=== PATIENT | female | born 1970 | race Caucasian/White ===

== ENCOUNTER 2016-10-26 22:13 | Emergency (ER) | payer OTHER ==
[2016-10-27] MEDS ORDERED: HYDROCOD/APAP 5/325 PREPACK#6 BTL TAKEHOME ONE (00:24)
--- NOTE | 2016-10-27 00:24 | EDPHY ---
H & P Stated Complaint: fell right wrist deformity HPI/ROS: Chief complaint: Right wrist injury History of present illness: 46-year-old female presents to the emergency department for a right wrist injury. Patient was walking her dog when she tripped and fell and essentially sustained a FOOSH injury. She has had severe pain. She has noted a deformity. She can not move the wrist. She denies open wounds. She denies abnormal coolness or paresthesias in the extremity. No other injuries reported. - Personal History LMP (Females 10-55): Post Menopausal Current Tetanus Diphtheria and Acellular Pertussis (TDAP): Unsure - Medical/Surgical History Hx Asthma: No Hx Chronic Respiratory Disease: No Hx Diabetes: No Hx Cardiac Disease: No Hx Renal Disease: No Hx Cirrhosis: No Hx Alcoholism: No Hx HIV/AIDS: No Hx Splenectomy or Spleen Trauma: No Other PMH: Lyme disease, hypothyroid, tonsilectomy, oral surgery, eye surgery - Social History Smoking Status: Former smoker - Physical Exam Exam: General: Alert, nontoxic Skin: No open wounds to the right upper extremity Musculoskeletal: Obvious deformity of the right wrist. She can move the wrist. She is moving the digits of the right hand although this causes pain in the wrist. The mid and proximal forearm, elbow and upper arm are nontender and she is moving the elbow and shoulder well. Vascular: Radial pulses 2+. Capillary refill brisk in the right hand. Neurologic: Sensation intact throughout the right upper extremity. Constitutional: Initial Vital Signs Temperature (C) 36.4 C 10/26/16 22:17 Heart Rate 68 10/26/16 22:17 Respiratory Rate 20 10/26/16 22:17 Blood Pressure 141/93 H 10/26/16 22:17 O2 Sat (%) 99 10/26/16 22:17 O2 Delivery Mode Room Air Allergies/Adverse Reactions: No Known Allergies Allergy (Unverified 10/26/16 22:16) Home Medications: Medication Instructions Recorded Estrogens, Conjugated 10/26/16 Naturethroid 10/26/16 Progesterone 10/26/16 Hydrocodone/APAP 5/325 [[place] 1 tab PO Q6H #10 tab 10/27/16 5/325 (*)] Medical Decision Making - Diagnostics Imaging Results: Imaging Impressions Wrist X-Ray 10/27/16 00:07 Impression: Closed reduction and casting of distal right radial and ulnar fractures. Imaging: I viewed and interpreted images myself Procedures: Procedure: Hematoma block Verbal consent was obtained after risks and benefits were discussed. The area was prepped with Hibiclens. 10 cc of 1% lidocaine without epinephrine were instilled. Patient obtained good anesthesia. No complications noted. Procedure: Fracture reduction. The distal radius and ulna was reduced in the usual fashion without complications. Post reduction the patient's neurovascular exam is normal. Post reduction x-ray demonstrates reduction of the joint to the anatomic position. The procedure was performed by myself. Procedure: Splint placement. A sugar-tong splint was applied. After application of the splint I returned and re-examined the patient. The splint was adequately immobilizing the joint and distal to the splint the patient's circulation and sensation was intact. Patient placed in a sling. ED Course/Re-evaluation: Patient seen under the supervision of my secondary supervising physician Dr. Frank Ross. Patient presents to the emergency department for right wrist injury. She is neurovascular intact. Obvious fracture that has been reduced and splinted with good positioning noted on post reduction films. She remains neurovascularly intact. Patient is discharged home. Home care including pain management is discussed. She is referred to Orthopedics for recheck. Return precautions are given. Differential Diagnosis: Included but not limited to contusion, sprain or strain, bony fracture, joint dislocation - Data Points Medications Given: Discontinued Medications Hydrocodone Bitart/Acetaminophen ([place] 5/325mg Prepack#6) [facility] Stop: 10/27/16 00:25 Last Admin: 10/27/16 00:44 Dose: 1 btl Departure - Departure Disposition: Home, Routine, Self-Care Clinical Impression: Wrist fracture Qualifiers: Encounter type: initial encounter Fracture type: closed Laterality: right Qualified Code(s): S62.101A - Fracture of unspecified carpal bone, right wrist, initial encounter for closed fracture Condition: Good Instructions: Hydrocodone/Acetaminophen (By mouth), Wrist Fracture in Adults ( ED) Additional Instructions: Follow-up with orthopedics for continued evaluation and care In regards to pain control see the following: Use ibuprofen [600] mg [3] times a day for the next 2-3 days for pain In addition You have been prescribed [[place]] for pain. [[place]] contains Tylenol, do not take extra Tylenol/acetaminophen/Apap with it. It is sedating. If symptoms worsen or new symptoms develop return to the emergency room for recheck Referrals: Carrol Lyle MD [Primary Care Provider] - As per Instructions Virgil Wan MD [Medical Doctor] - As per Instructions Prescriptions: Hydrocodone/APAP 5/325 [[place] 5/325 (*)] 1 tab PO Q6H #10 tab
[2016-10-27 00:52] VITALS: BP 112/75; PULSE 64; RESP 18; TEMP 97.9; O2SAT 95
== END 2016-10-27 00:52 | disposition home or self-care (01) ==
PROC: 0PSKXZZ Reposition Right Ulna, External Approach (ICD-10-PCS; principal; 2016-10-26)
PROC: 0PSHXZZ Reposition Right Radius, External Approach (ICD-10-PCS; principal; 2016-10-26)
DX: S52.501A Unspecified fracture of the lower end of right radius, initial encounter for closed fracture (principal); S52.601A Unspecified fracture of lower end of right ulna, initial encounter for closed fracture; Z87.891 Personal history of nicotine dependence; W01.0XXA Fall on same level from slipping, tripping and stumbling without subsequent striking against object, initial encounter
CPT/HCPCS: A4565

== ENCOUNTER 2018-08-09 09:31 | Emergency (ER) | payer OTHER | END 2018-08-09 11:15 | disposition home or self-care (01) ==